=== PATIENT | male | born 1985 | race Hispanic/Latino ===

== ENCOUNTER 2023-01-10 15:00 | Emergency (ER) | payer SELFPAY ==
[2023-01-10] VITALS (8 sets, daily range): BP systolic 155–166; BP diastolic 76–91; PULSE 72–83; RESP 16–21; TEMP 37.2; O2SAT 98
--- NOTE | ~2023-01-10 | XR_ITS ---
EXAMINATION: XR chest 2V 01/10/2023 15:26 INDICATION: Left-sided chest pain PROCEDURE: 2 view chest COMPARISON: No prior studies for comparison. FINDINGS: The lungs are clear. The cardiomediastinal silhouette is within normal limits. There are no pleural effusions. There is no pneumothorax suspected. IMPRESSION: 1: NO ACUTE CARDIOPULMONARY DISEASE. Reviewed, dictated and finalized at location L.
--- NOTE | 2023-01-10 15:06 | ECG_ITS ---
Measurements Intervals [place] Rate: 84 P: 58 [place]: 160 QRS: 56 QRSD: 100 T: 37 QT: 329 QTc: 389 Interpretive Statements SINUS RHYTHM POOR R WAVE PROGRESSION, ANTERIOR LEADS INFERIOR INFARCT, AGE INDETERMINATE ABNORMAL ECG NO PREVIOUS ECG AVAILABLE FOR COMPARISON Electronically Signed On 01-10-2023 18:31:54 CDT by Nikolas Saini D.O.
[2023-01-10 15:44] LABS: Basophils Percent Auto 0.4 % (0.2-1.2); Eosinophils Absolute Auto 0.1 K/mm3 (0-0.3); Eosinophils Percent Auto 1.4 % (0-4.4); Hematocrit 42.9 % (42.0-52.0); Hemoglobin 14.5 g/dL (14.0-18.0); Immature Granulocyte Absolute 0.03 K/mm3 (0.00-0.031); Immature Granulocyte Percent A 0.4 % (0-0.5); Lymphocytes Absolute Auto 2.39 K/mm3 (0.9-3.2); Lymphocytes Percent Auto 28.7 % (18.3-44.2); Mean Corpuscular HGB Conc 33.8 g/dl (32-36); Mean Corpuscular Hemoglobin 29.7 pg (26-34); Mean Corpuscular Volume 87.9 fl (80-100); Mean Platelet Volume 9.3 fl (7.4-10.4); Monocytes Absolute Auto 0.4 K/mm3 (0.1-0.6); Neutrophils Absolute Auto 5.3 K/mm3 (1.3-6.7); Neutrophils Percent Auto 64.1 % (45.5-73.1); Platelet Count Result 154 k/mm3 (150-375); Red Blood Count 4.88 M/mm3 (4.6-6.20); Red Cell Distribution Width 12.1 % (11.5-14.5); White Blood Count 8.3 K/mm3 (4.5-10.0)
[2023-01-10 15:55] LABS: Alanine Aminotransferase 61 U/L (6-50); Albumin Level 4.7 g/dL (3.5-5.1); Alkaline Phosphatase 95 U/L (38-126); Anion Gap 8 mmol/L (8-16); Aspartate Amino Transferase 43 U/L (17-59); Bilirubin,Total 0.4 mg/dL (0.2-1.3); Blood Urea Nitrogen 13 mg/dL (9-20); Calcium 8.6 mg/dL (8.4-10.2); Carbon Dioxide 26 mmol/L (22-30); Chloride 105 mmol/L (98-107); Estimated CRCL calculation 90 ml/min; Estimated Glomerular Filt Rate > 60; Glucose 154 mg/dL (65-110); Lipase 66 U/L (23-300); Potassium 3.6 mmol/L (3.4-5.0); Sodium 139 mmol/L (137-145)
[2023-01-10 15:59] LABS: Partial Thromboplastin Time 27.9 SECONDS (22.3-36.8)
[2023-01-10 16:15] LABS: Troponin I < 0.012 ng/mL (0.000-0.034)
--- NOTE | 2023-01-10 17:11 | ED.CHESTPAIN ---
HPI - Chest Pain General Chief Complaint: Chest Pain <BRANDT Mercado Last Filed: 01/11/23 02:16> Stated Complaint: Chest pain <BRANDT Mercado Last Filed: 01/11/23 02:16> Time Seen by Provider: 01/10/23 17:04 <BRANDT Mercado Last Filed: 01/11/23 02:16> Source: patient <BRANDT Mercado Last Filed: 01/11/23 02:16> Mode of arrival: ambulatory <BRANDT Mercado Last Filed: 01/11/23 02:16> Limitations: no limitations and language barrier <BRANDT Mercado Last Filed: 01/11/23 02:16> History of Present Illness HPI narrative: Patient is a 37-year-old male who presents to the ED with report of right-sided chest pain. Patient is primarily [place]ian-speaking. [employer] stereotype caster was utilized for assistance with translation. Patient reports having intermittent right-sided chest pain radiating to his back for the last 1 month. He notes he does perform heavy lifting frequently and pain often hurts worse after working throughout the day. He denies any worsening of chest pain or aggravation with exertion. Denies any difficulty breathing, shortness of breath, pleuritic pain, abdominal pain, nausea, vomiting, cough or cold symptoms, fevers, BLE pain or edema. Patient has not tried anything for his pain. He denies any past medical history, no diabetes, hyperlipidemia, hypertension, family history of heart disease, history of blood clots, smoking. <BRANDT Mercado Last Filed: 01/11/23 02:16> Related Data Allergies/Adverse Reactions: Allergies Allergy/AdvReac Type Severity Reaction Status Date / Time No Known Allergies Allergy Verified 01/10/23 17:53 <BRANDT Mercado Last Filed: 01/11/23 02:16> Review of Systems Review of Systems: CONSTITUTIONAL: Denies fever, chills, or sweats. ENT: Denies rhinorrhea, congestion, sore throat. CARDIOVASCULAR: See HPI. RESPIRATORY: Denies cough, shortness of breath, pleuritic pain, or dyspnea. GASTROINTESTINAL: Denies abdominal pain, nausea, vomiting. SKIN: Denies rash or itching. MUSCULOSKELETAL: See HPI. <Joyce Andrade PA-C - Last Filed: 01/11/23 02:16> All systems reviewed & are unremarkable except as noted in HPI and below <Joyce Andrade PA-C - Last Filed: 01/11/23 02:16> [facility] Past Medical History Medical History: Medical History No pertinent past medical history <Joyce Andrade PA-C - Last Filed: 01/11/23 02:16> Surgical History Surgical History: Surgical History (Updated 01/10/23 @ 18:21 by Joyce Andrade PA-C) No pertinent past surgical history <Joyce Andrade PA-C - Last Filed: 01/11/23 02:16> Social History Social History: Social History (Updated 01/10/23 @ 18:21 by Joyce Andrade PA-C) Smoking status: Former smoker <Joyce Andrade PA-C - Last Filed: 01/11/23 02:16> Exam Narrative: GENERAL: Well appearing, obese with BMI of 38.8, non-toxic, in no acute distress. HEAD: Normocephalic, atraumatic. NECK: Supple. No adenopathy, no masses. RESPIRATORY: Airway patent, respirations nonlabored. Clear to auscultation bilaterally, no rales, rhonchi, wheezing. CARDIOVASCULAR: Regular rate and rhythm without murmurs, rubs, or gallops. Radial pulses 2+ and equal bilaterally. ABDOMINAL: Soft, no tenderness throughout upper abdomen, nondistended, no hepatosplenomegaly. Normoactive BS. MUSCULOSKELETAL: Moves all extremities. Strength/ROM intact without gross deformities. No chest wall tenderness to palpation. No edema. No calf tenderness. SKIN: Warm, dry, normal color. No rashes. NEURO: A&O X3. Speech clear. Cranial nerves II-XII grossly intact. Steady gait. No ataxic movements. PSYCHIATRIC: Appropriate mood and affect. Normal interaction. <Joyce Andrade PA-C - Last Filed: 01/11/23 02:16> [employer]
[2023-01-10] MEDS: Please add drug allergy info to patient profile. 1 EACH XX (17:53)
[2023-01-10 18:39] LABS: Troponin I < 0.012 ng/mL (0.000-0.034)
== END 2023-01-10 19:12 | disposition home or self-care (01) ==
LOC: ANHED 19:02
PROVIDERS: Emergency Medicine; Emergency Provider Physician Assistant
DX: R07.89 Other chest pain (principal); Z87.891 Personal history of nicotine dependence; R94.31 Abnormal electrocardiogram [ECG] [EKG]
CPT/HCPCS: 36415; 71046; 80053; 83690; 84484; 85025; 85610; 85730; 93005; 99284